=== PATIENT | female | born 1985 | race African-American/Black ===

== ENCOUNTER 2025-01-11 09:49 | Emergency (ER) | payer MEDICAID ==
[~2025-01-11] VITALS: Ht 157.5 cm; Wt 58.0 kg
[2025-01-11 10:00] VITALS: O2SAT 100
[2025-01-11] MEDS ORDERED: IBUP-2029 MT (12:26)
[2025-01-11] MEDS ORDERED: CYCL5TAB3 MT (12:26)
[2025-01-11 12:59] VITALS: BP 153/95; PULSE 94; RESP 14; TEMP 36.9; O2SAT 100
== END 2025-01-11 12:59 | disposition home or self-care (01) ==
LOC: ER 09:49
DX: S13.4XXA Sprain of ligaments of cervical spine, initial encounter (principal); E11.9 Type 2 diabetes mellitus without complications; X58.XXXA Exposure to other specified factors, initial encounter; Y93.89 Activity, other specified; Y92.89 Other specified places as the place of occurrence of the external cause; Y99.8 Other external cause status
CPT/HCPCS: 99283